=== PATIENT | male | born 1955 | race Caucasian/White ===

== ENCOUNTER → 2022-01-03 | Outpatient (CLI) | payer MEDICARE, OTHER ==
[~2022-01-03] MED LIST: ALLOPURINOL100 MG PO; ANTIVERT 25MG T25 MG PO; ASPIRIN CHEWABL81 MG PO; ASPIRIN81 MG PO; ATORVASTATIN CA80 MG PO; ATROVENT-HFA12.9 GM INH; CATAPRES 0.1MG0.1 MG PO; CIPRO500 MG PO; CIPROFLOXACIN500 M1 PO; CLARITIN10 MG PO; COREG6.25 MG PO; DAILY VITAMIN1 EAC2 PO; FERROUS SULFAT325 M2 PO; FLECAINIDE ACET50 MG PO; FOLIC ACID1 MG PO; GABAPENTIN800 MG PO; HYDRALAZINE HCL25 MG PO; HYDROCODON-ACE1 EAC2 PO; IBU800 MG PO; IBUPROFEN800 MG PO; INDERAL TAB 1010 MG PO; ISOSORBIDE MONO30 MG PO; LIBRIUM CAP 2525 MG PO; LIPITOR80 MG PO; METOPROLOL SUCC50 MG PO; MOTION RELIEF25 MG PO; MOTION SICKNESS25 M1 PO; NEURONTIN 400400 MG PO; NEURONTIN400 MG PO; NORVASC5 MG PO; OMEPRAZOLE40 MG PO; PERCOCET 7.5-31 EACH PO; PRILOSEC OTC20 MG PO; PRINIVIL20 MG PO; SINGULAIR10 MG PO; SYMBICORT 16010.2 GM INH; THERAGRAN M TAB1 EA PO; VALTREX 500 MG500 MG PO; VENTOLIN HFA 66.7 GM INH; VITAMIN B-1100 MG PO; VITAMIN B-121000 MC3 PO; VITAMIN D350 MC3 PO; XARELTO20 MG PO; ZYLOPRIM 100 M100 MG PO
[2022-01-03 11:52] LABS: HEMOGLOBIN 13.1 gm/dl (14.0-17.5); RED BLOOD COUNT 4.23 M/UL (4.20-5.50); WHITE BLOOD COUNT 6.3 K/UL (4.5-11.0)
[2022-01-03 12:23] LABS: BUN/CREATININE RATIO 19 (0-10)
== END ==
LOC: OPSV2 12-26 12:30 → EDSTATUS 11:00 → OPSV2 11:00
PROVIDERS: Orthopaedic Surgery
DX: Z01.818 Encounter for other preprocedural examination (principal); I10 Essential (primary) hypertension; Z86.711 Personal history of pulmonary embolism; Z88.5 Allergy status to narcotic agent; R94.31 Abnormal electrocardiogram [ECG] [EKG]; J98.11 Atelectasis
CPT/HCPCS: 71046; 80048; 85025; 93005